=== PATIENT | male | born 1990 | race African-American/Black ===

== ENCOUNTER 2023-06-07 17:44 | Emergency (ER) | payer OTHER ==
[~2023-06-07] VITALS: Ht 182.9 cm; Wt 81.6 kg
[2023-06-07] MEDS ORDERED: LORAZEPAM 2 MG/1 ML VIAL IV ONE (18:30)
[2023-06-07] MEDS ORDERED: HALOPERIDOL LACTATE 5 MG/1 ML VIAL IV ONE (18:30)
[2023-06-07] MEDS ORDERED: diphenhydrAMINE 50 MG/1 ML VIAL IV ONE (18:30)
[2023-06-07] MEDS ORDERED: diphenhydrAMINE 50 MG/1 ML VIAL ONE (19:29)
[2023-06-07] MEDS ORDERED: HALOPERIDOL LACTATE 5 MG/1 ML VIAL ONE (19:30)
[2023-06-07] MEDS ORDERED: LORAZEPAM 2 MG/1 ML VIAL ONE (19:30)
[2023-06-07] MEDS: diphenhydrAMINE 50 MG/1 ML VIAL IM ONE (19:40)
[2023-06-07] MEDS: LORAZEPAM 2 MG/1 ML VIAL IM ONE (19:40)
[2023-06-07] MEDS: HALOPERIDOL LACTATE 5 MG/1 ML VIAL IM ONE (19:40)
[2023-06-07 19:43] LABS: *BILIRUBIN,URIN NEGATIVE (NEGATIVE); *BLOOD, URINE 2+ (NEGATIVE); *CLARITY,URINE CLEAR (CLEAR); *COLOR,URINE YELLOW (YELLOW); *KETONES,URINE TRACE (NEGATIVE); *PROTEIN,URINE 1+ (NEGATIVE); *UROBILINOGEN,URINE 0.2 E.U./dl (NORMAL); LEUKOCYTE ESTERASE ,URINE NEGATIVE (NEGATIVE); NITRITE, URINE NEGATIVE (NEGATIVE); UGLUCOSE NEGATIVE (NEGATIVE)
[2023-06-07 19:46] LABS: BACTERIA,URINE NONE SEEN /HPF (NONE SEEN); SQUAMOUS EPITHELIAL CELL,UR NONE SEEN /HPF (NONE SEEN); WBC,URINE NONE SEEN /HPF (0-3)
[2023-06-07 20:00] LABS: *AMPHETAMINE, URINE POSITIVE (NEGATIVE); *BARBITURATE, URINE NEGATIVE (NEGATIVE); *BENZODIAZEPINE, URINE POSITIVE (NEGATIVE); *CANNABINOID, URINE POSITIVE (NEGATIVE); *COCCAINE, URINE NEGATIVE (NEGATIVE); *OPIATE, URINE NEGATIVE (NEGATIVE); *PHENCYCLIDINE SCREEN,URINE NEGATIVE (NEGATIVE)
[2023-06-07 20:01] LABS: FENTANYL, URINE POSITIVE (NEGATIVE)
[2023-06-07] MEDS ORDERED: KETAMINE HCL 500 MG/10 ML INJ ONE (20:21)
[2023-06-07] MEDS: KETAMINE HCL 500 MG/10 ML INJ IM ONE (20:26)
[2023-06-07 21:06] LABS: BASOPHILS # (AUTO) 0.1 K/UL (0.0-0.2); BASOPHILS % (AUTO) 1.2 % (0.0-2.0); EOSINOPHILS # (AUTO) 0.1 K/uL (0.0-0.7); EOSINOPHILS % (AUTO) 0.6 % (0.0-7.0); HEMATOCRIT 41.7 % (36.7-47.1); HEMOGLOBIN 14.4 g/dL (12.5-16.3); LYMPHOCYTES # (AUTO) 2.2 K/uL (0.8-4.8); MEAN CORPUSCULAR HEMOGLOBIN 32.3 uug (23.8-33.4); MEAN CORPUSCULAR HGB CONC 35 g/dL (32.5-36.3); MEAN CORPUSCULAR VOLUME 93.5 fL (73.0-96.2); MONOCYTES # (AUTO) 0.5 K/uL (0.1-1.30); MONOCYTES % (AUTO) 4.5 % (0.0-11.0); NEUTROPHILS # (AUTO) 8.6 K/uL (1.8-8.9); NEUTROPHILS % (AUTO) 74.7 % (38.5-71.5); PLATELET COUNT (AUTO) 409 K/uL (152-348); RED BLOOD CELL COUNT(AUTO) 4.45 MIL/uL (4.06-5.63); RED CELL DISTRIBUTION WIDTH 12.9 % (12.1-16.2); WHITE BLOOD COUNT (AUTO) 11.5 K/uL (3.6-10.2)
[2023-06-07 21:47] LABS: DIFFERENTIAL COMMENT 1
[2023-06-07 21:56] LABS: ALANINE AMINOTRANSFERASE 59 U/L (16-63); ALBUMIN 4.1 g/dL (3.4-5.0); ALKALINE PHOSPHATASE 67 U/L (50-136); ASPARTATE AMINOTRANSFERASE 37 U/L (15-37); BILIRUBIN,DIRECT 0.3 mg/dL (0.0-0.2); BILIRUBIN,TOTAL 0.8 mg/dL (0.2-1.0); CARBON DIOXIDE 24 mmol/L (21-32); CHLORIDE 104 mmol/L (98-107); CREATININE 0.7 mg/dL (0.6-1.3); GLUCOSE 128 mg/dL (74-106); POTASSIUM 3.1 mmol/L (3.5-5.1); SODIUM SERUM 138 mmol/L (136-145); TOTAL PROTEIN, SERUM 8.7 g/dL (6.4-8.2); UREA NITROGEN, BLOOD 13 mg/dL (7-18)
[2023-06-07 22:20] LABS: ETHANOL < 3 MG/DL (0-10)
[2023-06-07 22:21] LABS: ACETAMINOPHEN < 2.0 ug/mL (10-30)
[2023-06-08] MEDS ORDERED: POTASSIUM CHLORIDE 20 MEQ TAB.PRT.SR ONE (01:19)
[2023-06-08] MEDS: POTASSIUM CHLORIDE 20 MEQ TAB.PRT.SR PO ONE (15:00)
[2023-06-09 03:27] VITALS: BP 134/90; TEMP 98; O2SAT 99
== END 2023-06-09 03:28 | disposition home or self-care (01) ==
LOC: ER 17:47
DX: R41.0 Disorientation, unspecified (principal); T40.411A Poisoning by fentanyl or fentanyl analogs, accidental (unintentional), initial encounter; R06.02 Shortness of breath; Z20.822 Contact with and (suspected) exposure to COVID-19; F15.129 Other stimulant abuse with intoxication, unspecified; Y92.89 Other specified places as the place of occurrence of the external cause
CPT/HCPCS: 80076; 80048; 81001; 82550; 82962; 85025; 85651; 87426; 36415; 93005; 71045; 70450; 72125; 99291; 96372 ×2; 80299; 80320; 80307; J1200; J1630; J3490; J2060; A4606; A4663; G0480